=== PATIENT | female | born 1990 | race African-American/Black ===

== ENCOUNTER 2017-01-05 03:07 | Observation (INO) | payer SELFPAY ==
[~2017-01-05] VITALS: Ht 160 cm; Wt 93.9 kg
[2017-01-05] MEDS ORDERED: LACTATED RINGERS 1,000 ML IV SCH (04:06)
[2017-01-05 04:26] LABS: CLARITY URINE CLOUDY (CLEAR); COLOR URINE YELLOW (YELLOW); GLUCOSE URINE NEGATIVE (NEGATIVE); KETONES URINE TRACE (NEGATIVE); LEUKOCYTE ESTERASE URINE TRACE (NEGATIVE); NITRITE URINE NEGATIVE (NEGATIVE); OCCULT BLOOD URINE NEGATIVE (NEGATIVE); PROTEIN URINE TRACE (NEGATIVE); SPECIFIC GRAVITY URINE 1.029 (1.005-1.030); UROBILINOGEN URINE 0.2 E.U./dL (0.2-1.0)
[2017-01-05] MEDS ORDERED: PREN-15 PO (05:17)
[2017-01-05] MEDS ORDERED: CEFAZOLIN 2,000 MG in DEXT 5% WATER 100 ML IV SCH (06:30)
[2017-01-05] MEDS ORDERED: TERBUTALINE SULFATE 1MG/ML VIAL SUBCUT PRN (07:15)
== END 2017-01-05 08:30 | disposition home or self-care (01) ==
LOC: L&D 03:07
PROVIDERS: ADMIT Obstetrics & Gynecology; ATTEND Obstetrics & Gynecology
DX: O26.892 Other specified pregnancy related conditions, second trimester (principal); R10.30 Lower abdominal pain, unspecified; R10.2 Pelvic and perineal pain; Z3A.24 24 weeks gestation of pregnancy
CPT/HCPCS: 76805; 81001; 96360; 96361; 99281; G0378; J0690; J7120; 96365; J7060